=== PATIENT | female | born 2000 | race Caucasian/White ===

== ENCOUNTER 2023-05-18 20:16 | Emergency (ER) | payer OTHER ==
[2023-05-18] MEDS ORDERED: Magnesium Sulfate 2gm IVPB 4 G/100 ML BAG IV ONE (21:00)
[2023-05-18] MEDS ORDERED: LABETALOL 20 MG/4ML SYRINGE IV ONE (21:00)
[2023-05-18 21:15] LABS: Absolute Lymphocytes (CBC) 1.8 K/uL (0.7-4.9); Hematocrit 29.2 % (36.0-45.0); Lymphocytes % 14.5 % (15.3-44.8); MCV 88.7 fL (80-100); MPV 7.1 fL (7.6-11.3); RBC Red Blood Cell Count 3.29 M/uL (3.86-4.86)
--- NOTE | 2023-05-18 21:24 | EDPHYS ---
Physician Documentation [facility] Name: Cherie Alcocer Age: 22 yrs Sex: Female : 2000 Arrival Date: 05/18/2023 Time: 20:16 Bed 6 Private MD: ED Physician Edy Frost HPI: 05/18 22:14 This 22 yrs old Female presents to ER via Ambulatory with complaints of Post rt Problem, High Blood Pressure. 22:14 Patient is a currently 4 days from a term spontaneous vaginal delivery rt presents to the ED with shortness of breath, reported edema starting today. Patient checked her blood pressure at home, noted that was 160 systolic. She delivered at [facility] in the [facility]. Denies other acute complaints at this time, symptoms are severe in severity, no other aggravating alleviating factors.. 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 - Social history:: Smoking status: Patient denies any tobacco usage or history of. - Family history:: not pertinent. ROS: 22:18 Constitutional: Negative for fever, chills, and weight loss, Abdomen/GI: Negative for rt abdominal pain, nausea, vomiting, diarrhea, and constipation, MS/Extremity: Negative for injury and deformity, Skin: Negative for injury, rash, and discoloration, Neuro: Negative for headache, weakness, numbness, tingling, and seizure, Psych: Negative for depression, anxiety, suicide ideation, homicidal ideation, and hallucinations. 22:18 Cardiovascular: Positive for edema, Negative for chest pain. 22:18 Respiratory: Positive for shortness of breath, Negative for cough. Exam: 21:24 ECG was reviewed by the Attending Physician. rt 22:18 Constitutional: This is a well developed, well nourished patient who is awake, alert, rt and in no acute distress. Head/Face: Normocephalic, atraumatic. Chest/axilla: Normal chest wall appearance and motion. Nontender with no deformity. No lesions are appreciated. Cardiovascular: Regular rate and rhythm with a normal S1 and S2. No gallops, murmurs, or rubs. Normal PMI, no JVD. No pulse deficits. Respiratory: Lungs have equal breath sounds bilaterally, clear to auscultation and percussion. No rales, rhonchi or wheezes noted. No increased work of breathing, no retractions or nasal flaring. Abdomen/GI: Soft, non-tender, with normal bowel sounds. No distension or tympany. No guarding or rebound. No evidence of tenderness throughout. Skin: Warm, dry with normal turgor. Normal color with no rashes, no lesions, and no evidence of cellulitis. Neuro: Awake and alert, GCS 15, oriented to person, place, time, and situation. Cranial nerves II-XII grossly intact. Motor strength 5/5 in all extremities. Sensory grossly intact. Cerebellar exam normal. Normal gait. Psych: Awake, alert, with orientation to person, place and time. Behavior, mood, and affect are within normal limits. 22:18 Musculoskeletal/extremity: 3+ bilateral lower extremity edema. Vital Signs: 20:46 BP 184 / 99; Pulse 74; Resp 18 S; Temp 97.8(O); Pulse Ox 100% on R/A; Weight 106.59 kg as6 (R); Height 5 ft. 5 in. (R); Pain 0/10; 21:16 BP 174 / 91; Pulse 80; Resp 17 S; Pulse Ox 99% on R/A; as6 21:38 BP 166 / 91; Pulse 70; Resp 17; Pulse Ox 100% on R/A; mc5 22:02 BP 147 / 90; Pulse 74; Resp 19; Pulse Ox 100% on R/A; jb4 22:09 BP 146 / 82; Pulse 75; Resp 15 S; Pulse Ox 99% on R/A; as6 22:45 BP 164 / 86; Pulse 97; Resp 19 S; Pulse Ox 100% on R/A; as6 20:46 Body Mass Index 39.11 (106.59 kg, 165.1 cm) as6 20:46 Pain Scale: Adult as6 MDM: 20:39 Patient medically screened. rt 22:18 Differential diagnosis: preeclampsia, cardiomyopathy. Data rt reviewed: vital signs, nurses notes. Consideration of Admission/Observation Escalation of care including admission/observation considered. 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 I considered the following discharge prescriptions or medication management in the emergency department Medications were administered in the Emergency Department. See MAR. Care significantly affected by the following chronic conditions: Diabetes. Counseling: I had a detailed discussion with the patient and/or guardian regarding: the historical points, exam findings, and any diagnostic results supporting the discharge/admit diagnosis, the presence of at least one elevated blood pressure reading (>120/80) during this emergency department visit, lab results, the need to transfer to another facility. Response to treatment: the patient's symptoms have markedly improved after treatment. 05/18 20:45 Order name: CBC with Diff; Complete Time: 21:38 rt 05/18 20:45 Order name: CMP; Complete Time: :38 rt 05/18 20:45 Order name: Troponin High Sensitivity; Complete Time: 21:38 rt 05/18 20:45 Order name: BNP; Complete Time: 21:38 rt 05/18 20:45 Order name: EKG; Complete Time: 20:46 rt 05/18 20:45 Order name: EKG - Nurse/Tech; Complete Time: 21:05 rt EC:24 Rate is 72 beats/min. Rhythm is regular, Normal Sinus Rhythm with No ectopy. QRS Nahma rt is Normal. UT interval is normal. QRS interval is normal. QT interval is normal. No Q waves. T waves are Normal. No ST changes noted. Interpreted by me. Administered Medications: 21:05 Drug: Magnesium Sulfate IVPB 4 grams Route: IVPB; Infused Over: 30 hrs; Site: left as6 antecubital; 22:44 Follow up: Response: No adverse reaction; IV Status: Completed infusion; IV Intake: as6 100ml 21:05 Drug: Labetalol IV 10 mg Route: IV; Rate: calculated rate; Site: left antecubital; as6 22:44 Follow up: Response: No adverse reaction; IV Status: Completed infusion; IV Intake: 2ml as6 21:53 Drug: Labetalol IV 10 mg Route: IV; Rate: calculated rate; Site: left antecubital; jb4 22:44 Follow up: Response: No adverse reaction; IV Status: Completed infusion; IV Intake: 2ml as6 21:58 Drug: Magnesium Sulfate IVPB 2 grams Route: IVPB; Infused Over: 2 hrs; Site: left jb4 antecubital; 22:44 Follow up: Response: No adverse reaction; IV Status: Completed infusion; IV Intake: [id number] Disposition Summary: 05/18/23 21:23 Transfer Ordered Transfer Location: [facility] rt Reason: Private Physician at Transferring Hospital rt Condition: Critical rt Problem: new rt Symptoms: have improved rt Accepting Physician: Dr. Burleson(05/18/23 22:48) as6 Diagnosis - hypertension rt Forms: - Medication Reconciliation Form rt - SBAR form rt Critical care time excluding procedures: 22:18 Critical care time: Bedside Care: 30 minutes, Consultation: 10 minutes. Total time: 40 rt minutes Signatures: Dispatcher [employer] EDDave Davis RN RN jb4 Bala Estrada RN RN as6 Edy Frost MD MD rt Corrections: (The following items were deleted from the chart) 22:48 21:23 Dr. Burleson rt as6
--- NOTE | 2023-05-18 21:24 | ER ---
Nurse's Notes [facility] Name: Cherie Alcocer Age: 22 yrs Sex: Female : 2000 Arrival Date: 05/18/2023 Time: 20:16 Bed 6 Private MD: Diagnosis: hypertension Presentation: 05/18 20:46 Chief complaint: Patient states: 4 days post of vaginal delivery, pt blood as6 pressure at home it was high, pt is also having SOB. Coronavirus screen: At this time, the client does not indicate any symptoms associated with coronavirus-19. Ebola Screen: No symptoms or risks identified at this time. Initial Sepsis Screen: Does the patient meet any 2 criteria? No. Patient's initial sepsis screen is negative. Does the patient have a suspected source of infection? No. Patient's initial sepsis screen is negative. Risk Assessment: Do you want to hurt yourself or someone else? Patient reports no desire to harm self or others. Onset of symptoms was May 17, 2023. 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 - Social history:: Smoking status: Patient denies any tobacco usage or history of. - Family history:: not pertinent. Screenin:06 [facility] ED Fall Risk Assessment (Adult) Score/Fall Risk Level 0 - 2 = Low Risk. Abuse as6 screen: Denies threats or abuse. Denies injuries from another. Nutritional screening: No deficits noted. Tuberculosis screening: No symptoms or risk factors identified. Assessment: 21:05 General: Appears in no apparent distress. Behavior is calm, cooperative. Pain: Denies as6 pain. Neuro: Level of Consciousness is awake, alert, obeys commands, Oriented to person, place, time, situation. Cardiovascular: Edema is 2+ to left foot, left toes, right foot and right toes pitting to left ankle, left foot, left toes, right ankle, right foot and right toes. Respiratory: Reports shortness of breath Respiratory effort is even, unlabored, Respiratory pattern is regular, symmetrical. Vital Signs: 20:46 BP 184 / 99; Pulse 74; Resp 18 S; Temp 97.8(O); Pulse Ox 100% on R/A; Weight 106.59 kg as6 (R); Height 5 ft. 5 in. (R); Pain 0/10; 21:16 BP 174 / 91; Pulse 80; Resp 17 S; Pulse Ox 99% on R/A; as6 21:38 BP 166 / 91; Pulse 70; Resp 17; Pulse Ox 100% on R/A; mc5 22:02 BP 147 / 90; Pulse 74; Resp 19; Pulse Ox 100% on R/A; jb4 22:09 BP 146 / 82; Pulse 75; Resp 15 S; Pulse Ox 99% on R/A; as6 22:45 BP 164 / 86; Pulse 97; Resp 19 S; Pulse Ox 100% on R/A; as6 20:46 Body Mass Index 39.11 (106.59 kg, 165.1 cm) as6 20:46 Pain Scale: Adult as6 ED Course: 20:19 Patient arrived in ED. kj1 20:23 Edy Frost MD is Attending Physician. rt 20:38 Bala Estrada, SHAYAN is Primary Nurse. as6 20:46 Arm band placed on. as6 20:46 Initiated transfer to [facility]. 5 20:48 Triage completed. as6 21:00 EKG done, by ED staff, reviewed by Edy Frost MD. wm 21:05 Inserted saline lock: 20 gauge in left antecubital area, using aseptic technique. Blood as6 collected. 21:06 Bed in low position. Call light in reach. as6 21:08 Patient accepted to [facility] \T\ [address] Domitila Burleson. 5 21:45 [facility] contacted to request transport truck, 30 min ETA. 5 22:44 Provided Education on: need for transfer . as6 22:45 No provider procedures requiring assistance completed. Patient transferred, IV remains as6 in place. Administered Medications: 21:05 Drug: Magnesium Sulfate IVPB 4 grams Route: IVPB; Infused Over: 30 hrs; Site: left as6 antecubital; 22:44 Follow up: Response: No adverse reaction; IV Status: Completed infusion; IV Intake: as6 100ml 21:05 Drug: Labetalol IV 10 mg Route: IV; Rate: calculated rate; Site: left antecubital; as6 22:44 Follow up: Response: No adverse reaction; IV Status: Completed infusion; IV Intake: 2ml as6 21:53 Drug: Labetalol IV 10 mg Route: IV; Rate: calculated rate; Site: left antecubital; jb4 22:44 Follow up: Response: No adverse reaction; IV Status: Completed infusion; IV Intake: 2ml as6 21:58 Drug: Magnesium Sulfate IVPB 2 grams Route: IVPB; Infused Over: 2 hrs; Site: left jb4 antecubital; 22:44 Follow up: Response: No adverse reaction; IV Status: Completed infusion; IV Intake: [id number] Medication: 21:06 VIS not applicable for this client. as6 Intake: 22:44 IV: 100ml; Total: 100ml. as6 22:44 IV: 2ml; Total: 102ml. as6 22:44 IV: 2ml; Total: 104ml. as6 22:44 IV: 50ml; Total: 154ml. as6 Outcome: 21:23 ER care complete, transfer ordered by MD. rt 22:45 Transferred by ground EMS to [facility], Transfer form completed. X-rays sent as6 w/ patient. 22:45 Condition: stable 22:45 Instructed on the need for transfer. 22:48 Patient left the ED. as6 Signatures: Dave Becerra RN RN jb4 Arelis Holguin1 Mili Curry Bala Estrada RN RN as6 Marivel Tabor RN RN kd3 Edy Frost MD MD rt Kiara Berrios mc5 Corrections: (The following items were deleted from the chart) 20:36 20:35 BP 126 / 66; Pulse 98bpm; Resp 18bpm; Pulse Ox 100% RA; Temp 98.3F Oral; 63.5 kg; kd3 Height 5 ft. 7 in.; BMI: 21.9; kd3
[2023-05-18 21:28] LABS: Albumin 2.5 g/dL (3.4-5.0); Bilirubin Total 0.3 mg/dL (0.2-1.0); Potassium 3.6 mEq/L (3.5-5.1)
[2023-05-18] MEDS ORDERED: Magnesium Sulfate 2gm IVPB 2 G/50 ML BAG IV ONE (22:02)
[2023-05-18 23:51] VITALS: TEMP 97.8
[2023-05-18 23:59] VITALS: BP 164/86; O2SAT 100
--- NOTE | 2023-05-20 11:46 | EKG ---
Test Date: 2023-05-18 Test Time: 20:58:49 [employer] St[employer] Builder: MEASUREMENT RESULTS: Intervals: Rate: 72 TN: 142 QRSD: 88 QT: 414 QTc: 453 [place]: P: 49 TN: 142 QRS: 64 T: 45 INTERPRETIVE STATEMENTS: Normal sinus rhythm with sinus arrhythmia Normal ECG No previous ECG available for comparison Electronically Signed On 05-20-23 11:44:09 CDT by Anthony Morales
== END 2023-05-18 22:48 | disposition short-term general hospital (02) ==
LOC: ER 20:16
DX: O16.5 Unspecified maternal hypertension, complicating the puerperium (principal)
CPT/HCPCS: 96365; 93005; 85025; 36415; 84484; 80053; 83880; 99285; J3475 ×2